=== PATIENT | female | born 1950 | race Caucasian/White ===

== ENCOUNTER 2021-01-04 11:10 | Emergency (ER) | payer MEDICARE, BC ==
[~2021-01-04] VITALS: Ht 162.6 cm; Wt 62.0 kg
[~2021-01-04 11:10] MED LIST: AMIO200T62 PO; APIX5TAB3 PO; CARV-50 PO; DIGO125T PO; FURO-149 PO; FURO-150 PO; GABA-532 PO; LISI2.5T2 PO; POTA20TA19 PO
[2021-01-04 12:17] LABS: BASOPHILS # (AUTO) 0.1 X10'3 (0-0.2); BASOPHILS % (AUTO) 0.6 % (0-1); EOSINOPHILS # (AUTO) 0.1 X10'3 (0-0.9); EOSINOPHILS % (AUTO) 0.7 % (0-6); HEMATOCRIT 41.7 % (35.0-45.0); HEMOGLOBIN 14.1 g/dl (12.0-16.0); LYMPHOCYTES % (AUTO) 11.3 % (21-51); MEAN CORPUSCULAR HEMOGLOBIN 31.8 PG (27.0-31.0); MEAN CORPUSCULAR HGB CONC 33.9 g/dL (33.0-36.5); MEAN CORPUSCULAR VOLUME 93.8 FL (78-98); MEAN PLATELET VOLUME 8.9 FL (7.4-10.4); MONOCYTES # (AUTO) 0.3 X10'3 (0-0.9); MONOCYTES % (AUTO) 3.4 % (2-12); NEUTROPHILS # (AUTO) 7.6 X10'3 (1.8-7.7); PLATELET COUNT 242 X10'3 (140-440); RED BLOOD COUNT 4.44 X10'6 (4.20-5.60); RED CELL DISTRIBUTION WIDTH 13.5 % (11.5-14.5); WHITE BLOOD COUNT 9.1 X10'3 (4.5-11.0)
[2021-01-04 12:24] LABS: CLARITY,URINE SLIGHTLY CLOUDY (Clear); COLOR,URINE STRAW (Yellow); GLUCOSE, URINE NEGATIVE (Neg); KETONES,URINE NEGATIVE (Neg); LEUKOCYTE ESTERASE ,URINE NEGATIVE (Neg); NITRITES, URINE NEGATIVE (Neg); OCCULT BLOOD,URINE TRACE-INTACT (Neg); PH,URINE 7.5 (4.8-8.0); PROTEIN,URINE NEGATIVE (Neg); UROBILINOGEN,URINE 0.2 E.U/dL (0.2-1.0)
[2021-01-04 12:29] LABS: UA COLLECTION TYPE CLN CATCH MIDSTREAM
[2021-01-04 12:30] LABS: BACTERIA,URINE 1+ /HPF (Neg); MUCUS STRANDS FEW /LPF (Neg); RBC,URINE 0-2 /HPF (0-2); SQUAMOUS EPITHELIAL CELL,UR MANY /LPF (FEW)
[2021-01-04 12:31] LABS: WBC,URINE 0-4 /HPF (0-4)
[2021-01-04 12:36] LABS: ALANINE AMINOTRANSFERASE 30 U/L (12-78); ALBUMIN 4.7 G/DL (3.4-5.0); ALBUMIN/GLOBULIN RATIO 1.4 (1.1-1.5); ALKALINE PHOSPHATASE 41 IU/L (46-116); ANION GAP 9 (8-16); ASPARTATE AMINO TRANSFERASE 23 U/L (10-37); BILIRUBIN,TOTAL 1.1 MG/DL (0.1-1.0); BLOOD UREA NITROGEN 19 MG/DL (7-18); BUN/CREATININE RATIO 13.6 (6.6-38.0); CALCIUM 9.3 MG/DL (8.5-10.1); CHLORIDE 104 MMOL/L (99-107); GLUCOSE 101 MG/DL (70-104); LIPASE 138 U/L (73-393); POTASSIUM 4.1 MMOL/L (3.5-5.1); SODIUM 141 MMOL/L (135-145); TOTAL CARBON DIOXIDE 28.5 MMOL/L (24-32); eGFR 37 ML/MIN
[2021-01-04 16:30] VITALS: BP 101/53
== END 2021-01-04 16:27 | disposition home or self-care (01) ==
LOC: ER 11:11
DX: N18.9 Chronic kidney disease, unspecified (principal); K57.90 Diverticulosis of intestine, part unspecified, without perforation or abscess without bleeding; R10.13 Epigastric pain; R42 Dizziness and giddiness; I48.91 Unspecified atrial fibrillation; Z95.5 Presence of coronary angioplasty implant and graft; Z87.440 Personal history of urinary (tract) infections; Z79.899 Other long term (current) drug therapy
CPT/HCPCS: 36415; 74176; 80053; 81001; 83690; 84484; 85025; 99284

== ENCOUNTER 2021-05-25 12:37 | Inpatient (IN) | payer MEDICARE, BC ==
[~2021-05-25] VITALS: Ht 162.6 cm; Wt 52.0 kg
[~2021-05-25 12:37] MED LIST changes: +LISI2.5T14 PO; -LISI2.5T2 PO
--- NOTE | 2021-05-25 12:45 | NUR ---
DR BRADLEY NOTIFIED OF LOW BP, AWAITING ORDERS
[2021-05-25 13:58] LABS: BASOPHILS # (AUTO) 0.1 X10'3 (0-0.2); BASOPHILS % (AUTO) 0.8 % (0-1); EOSINOPHILS % (AUTO) 0.4 % (0-6); HEMATOCRIT 33.4 % (35.0-45.0); HEMOGLOBIN 10.7 g/dl (12.0-16.0); LYMPHOCYTES # (AUTO) 1.1 X10'3 (1.1-4.8); LYMPHOCYTES % (AUTO) 8.8 % (21-51); MEAN CORPUSCULAR HGB CONC 31.9 g/dL (33.0-36.5); MEAN CORPUSCULAR VOLUME 81.5 FL (78-98); MEAN PLATELET VOLUME 8.3 FL (7.4-10.4); MONOCYTES # (AUTO) 0.8 X10'3 (0-0.9); MONOCYTES % (AUTO) 6.4 % (2-12); NEUTROPHILS % (AUTO) 83.6 % (42-75); PLATELET COUNT 297 X10'3 (140-440); RED BLOOD COUNT 4.09 X10'6 (4.20-5.60); RED CELL DISTRIBUTION WIDTH 28.7 % (11.5-14.5); WHITE BLOOD COUNT 11.9 X10'3 (4.5-11.0)
[2021-05-25 14:01] LABS: ALANINE AMINOTRANSFERASE 44 U/L (12-78); ALBUMIN 3.2 G/DL (3.4-5.0); ALBUMIN/GLOBULIN RATIO 0.8 (1.1-1.5); ALKALINE PHOSPHATASE 96 IU/L (46-116); ANION GAP 16 (8-16); ASPARTATE AMINO TRANSFERASE 31 U/L (10-37); BILIRUBIN,TOTAL 0.6 MG/DL (0.1-1.0); BLOOD UREA NITROGEN 60 MG/DL (7-18); BUN/CREATININE RATIO 26.9 (6.6-38.0); CALCIUM 8.6 MG/DL (8.5-10.1); CHLORIDE 98 MMOL/L (99-107); CREATININE 2.23 MG/DL (0.40-0.90); GLUCOSE 128 MG/DL (70-104); POTASSIUM 4.7 MMOL/L (3.5-5.1); SODIUM 135 MMOL/L (135-145); TOTAL CARBON DIOXIDE 20.7 MMOL/L (24-32); TOTAL PROTEIN 7.1 G/DL (6.4-8.2); eGFR 22 ML/MIN
[2021-05-25] MEDS ORDERED: DOBUTamine-DoBUTrex 500mg/D5W 250 ML IV SCH ×2 (14:10)
[2021-05-25] MEDS ORDERED: normal saline 1000ML IV soln IV ONE (14:20)
--- NOTE | 2021-05-25 14:22 | NUR ---
Spoke with Dr. Rosario at 1415 regarding order for dobutamine. Dr. Rosario stated that patients EF was ok and that patient need fluids and to discontinue dobutamine.
[2021-05-25 14:39] LABS: ANISOCYTOSIS 3+; ELLIPTOCYTES 1+; HYPOCHROMASIA 1+; PLATELET ESTIMATE NORMAL; SCHISTOCYTES FEW; SPHEROCYTES FEW
[2021-05-25] MEDS ORDERED: WARF1TAB83 PO (15:29)
[2021-05-25] MEDS ORDERED: BUME1TAB8 PO (15:29)
[2021-05-25] MEDS ORDERED: PRAV20TA4 PO (15:29)
[2021-05-25] MEDS ORDERED: DAPA10TA PO (15:29)
[2021-05-25] MEDS ORDERED: SPIR25TA5 PO (15:29)
[2021-05-25] MEDS ORDERED: LOSA50TA64 PO (15:29)
[2021-05-25] MEDS ORDERED: potassium Cl 40MEQ/1/2NS 520ml 520 ML IV PRN ×2 (15:40)
[2021-05-25] MEDS ORDERED: magnesium 4gm in 100ml NS 100 ML IV PRN (15:40)
[2021-05-25] MEDS ORDERED: potassium Cl 20 mEq SR tablet PO PRN ×2 (15:40)
[2021-05-25] MEDS ORDERED: ondansetron/PF 4mg/2ml inj IV PRN (15:40)
[2021-05-25] MEDS ORDERED: magnesium Cl slow-release 64mg tablet PO PRN (15:40)
[2021-05-25] MEDS ORDERED: magnesium 2GM in 50ml NS 50 ML IV PRN (15:40)
[2021-05-25] MEDS: normal saline 1000ml 1,000 ML IV SCH (16:07)
--- NOTE | 2021-05-25 16:30 | NUR ---
DR TREE LAYTON FOR DECREASED BLOOD PRESSURE, AWAITING ORDERS
[2021-05-25 17:13] LABS: CLARITY,URINE CLEAR (Clear); COLOR,URINE STRAW (Yellow); GLUCOSE, URINE 500 mg/dl (Neg); KETONES,URINE NEGATIVE (Neg); LEUKOCYTE ESTERASE ,URINE NEGATIVE (Neg); NITRITES, URINE NEGATIVE (Neg); OCCULT BLOOD,URINE NEGATIVE (Neg); PROTEIN,URINE NEGATIVE (Neg); UA COLLECTION TYPE STRAIGHT CATH; UROBILINOGEN,URINE 0.2 E.U/dL (0.2-1.0)
[2021-05-25] MEDS ORDERED: normal saline 500ml IV soln 500 ML IV ONE (17:15)
[2021-05-25 18:13] LABS: PARTIAL THROMBOPLASTIN TIME 36 SECONDS (22-32)
--- NOTE | 2021-05-25 19:42 | NUR ---
NOTIFIED CLAIMS AGENT RIGHT OF WAY OF CV OF DIGOXIN 3.4, PER CLAIMS AGENT RIGHT OF WAY WE WILL NEED TO PUT IN CENTRAL LINE FOR FLORINDA PRESSORS, CENTRAL LINE SET UP WAITING ON DOCTOR
[2021-05-25] MEDS: K and/or MAG REPLACEMENT MC SCH (20:07)
[2021-05-25] MEDS ORDERED: warfarin 1mg tablet PO SCH ×2 (21:00)
[2021-05-25] MEDS ORDERED: NORepinephrine 8mg/ 250ml NS 250 ML IV ONE (21:23)
[2021-05-25] MEDS: gabapentin 300mg capsule PO SCH (21:47)
[2021-05-26] VITALS (11 sets, daily range): BP systolic 101–116; BP diastolic 58–64
--- NOTE | 2021-05-26 01:10 | NUR ---
PT STARTED ON LEVOPHED AT BASIC RATE 0.1MCG, PT BLOOD PRESSURE RESPONDS TO TREATMENT, MAP BETWEEN 60-65
[2021-05-26 01:42] LABS: BASOPHILS # (AUTO) 0.1 X10'3 (0-0.2); BASOPHILS % (AUTO) 0.7 % (0-1); EOSINOPHILS # (AUTO) 0.2 X10'3 (0-0.9); EOSINOPHILS % (AUTO) 1.1 % (0-6); HEMATOCRIT 32.4 % (35.0-45.0); HEMOGLOBIN 10.3 g/dl (12.0-16.0); LYMPHOCYTES # (AUTO) 1.8 X10'3 (1.1-4.8); LYMPHOCYTES % (AUTO) 12.2 % (21-51); MEAN CORPUSCULAR HGB CONC 31.8 g/dL (33.0-36.5); MEAN CORPUSCULAR VOLUME 81.8 FL (78-98); MONOCYTES # (AUTO) 1.2 X10'3 (0-0.9); MONOCYTES % (AUTO) 8.5 % (2-12); NEUTROPHILS # (AUTO) 11.3 X10'3 (1.8-7.7); NEUTROPHILS % (AUTO) 77.5 % (42-75); PLATELET COUNT 377 X10'3 (140-440); RED BLOOD COUNT 3.96 X10'6 (4.20-5.60); RED CELL DISTRIBUTION WIDTH 27.9 % (11.5-14.5); WHITE BLOOD COUNT 14.6 X10'3 (4.5-11.0)
[2021-05-26] MEDS: normal saline 1000ml 1,000 ML IV SCH ×2 (01:43→11:59)
[2021-05-26 02:06] LABS: ALBUMIN 3.1 G/DL (3.4-5.0); ANION GAP 15 (8-16); BLOOD UREA NITROGEN 46 MG/DL (7-18); BUN/CREATININE RATIO 27.5 (6.6-38.0); CALCIUM 8.7 MG/DL (8.5-10.1); CHLORIDE 102 MMOL/L (99-107); CREATININE 1.67 MG/DL (0.40-0.90); GLUCOSE 127 MG/DL (70-104); MAGNESIUM 2.2 MG/DL (1.5-2.4); POTASSIUM 4.6 MMOL/L (3.5-5.1); SODIUM 137 MMOL/L (135-145); eGFR 30 ML/MIN
[2021-05-26] MEDS: acetaminophen 325mg tablet PO PRN (05:10)
[2021-05-26] MEDS: K and/or MAG REPLACEMENT MC SCH (06:32)
[2021-05-26] MEDS ORDERED: pravastatin 40mg tablet PO SCH (08:00)
[2021-05-26] MEDS: amiodarone 200mg tablet PO SCH (08:39)
[2021-05-26] MEDS: DAPAGLIFLOZIN 10MG TABLET PO SCH (08:41)
[2021-05-26] MEDS: NORepinephrine 8mg/ 250ml NS 250 ML IV PRN ×2 (10:34→10:36)
--- NOTE | 2021-05-26 11:12 | NUR ---
dr. john at bedside. updated on pt condition.
[2021-05-26] MEDS ORDERED: digoxin 125mcg (0.125mg) tablet PO SCH (12:00)
--- NOTE | 2021-05-26 13:34 | NUR ---
Received report from Lani [facility] ED. Pt Transferred to ICU 2037 with belongings in stable condition. Pt hooked up to monitor. VSS 116/61, 90, 18, 99% RA. Pt eating lunch brought up from ED. Mayorga cath in place. PPM visualized.
--- NOTE | 2021-05-26 18:21 | NUR ---
Problems reprioritized. Patient report given, questions answered & plan of care reviewed with Prashant FERNÁNDEZ.
[2021-05-26] MEDS ORDERED: warfarin 1mg tablet PO ONE (21:00)
[2021-05-26] MEDS: gabapentin 300mg capsule PO SCH (21:12)
[2021-05-27] VITALS (26 sets, daily range): BP systolic 98–113; BP diastolic 56–74
[2021-05-27] MEDS: normal saline 1000ml 1,000 ML IV SCH ×2 (04:36→21:16)
[2021-05-27] MEDS: K and/or MAG REPLACEMENT MC SCH ×2 (08:00→19:47)
[2021-05-27] MEDS: DAPAGLIFLOZIN 10MG TABLET PO SCH (08:09)
[2021-05-27] MEDS: amiodarone 200mg tablet PO SCH (08:09)
[2021-05-27 11:36] LABS: BASOPHILS # (AUTO) 0.1 X10'3 (0-0.2); BASOPHILS % (AUTO) 0.8 % (0-1); EOSINOPHILS # (AUTO) 0.2 X10'3 (0-0.9); EOSINOPHILS % (AUTO) 1.8 % (0-6); HEMATOCRIT 26.2 % (35.0-45.0); HEMOGLOBIN 8.6 g/dl (12.0-16.0); LYMPHOCYTES # (AUTO) 1.3 X10'3 (1.1-4.8); LYMPHOCYTES % (AUTO) 12.8 % (21-51); MEAN CORPUSCULAR HEMOGLOBIN 26.6 PG (27.0-31.0); MEAN CORPUSCULAR HGB CONC 32.8 g/dL (33.0-36.5); MEAN CORPUSCULAR VOLUME 81.1 FL (78-98); MEAN PLATELET VOLUME 7.6 FL (7.4-10.4); MONOCYTES # (AUTO) 0.7 X10'3 (0-0.9); MONOCYTES % (AUTO) 6.9 % (2-12); NEUTROPHILS # (AUTO) 7.8 X10'3 (1.8-7.7); NEUTROPHILS % (AUTO) 77.7 % (42-75); PLATELET COUNT 276 X10'3 (140-440); RED BLOOD COUNT 3.23 X10'6 (4.20-5.60); RED CELL DISTRIBUTION WIDTH 27.7 % (11.5-14.5)
[2021-05-27 11:55] LABS: ALBUMIN 2.5 G/DL (3.4-5.0); ANION GAP 6 (8-16); BLOOD UREA NITROGEN 26 MG/DL (7-18); CALCIUM 8.3 MG/DL (8.5-10.1); CHLORIDE 107 MMOL/L (99-107); CREATININE 1.04 MG/DL (0.40-0.90); GLUCOSE 115 MG/DL (70-104); MAGNESIUM 2.2 MG/DL (1.5-2.4); SODIUM 137 MMOL/L (135-145); TOTAL CARBON DIOXIDE 23.6 MMOL/L (24-32); eGFR 52 ML/MIN
[2021-05-27 12:12] LABS: ANISOCYTOSIS 3+; MICROCYTOSIS 1+; PLATELET ESTIMATE NORMAL
[2021-05-27 12:13] LABS: ELLIPTOCYTES FEW; POIKILOCYTOSIS FEW
[2021-05-27] MEDS: pravastatin 40mg tablet PO SCH (20:41)
[2021-05-27] MEDS: gabapentin 300mg capsule PO SCH (20:42)
[2021-05-27] MEDS ORDERED: warfarin 1mg tablet PO ONE (21:00)
[2021-05-28] VITALS (22 sets, daily range): BP systolic 86–114; BP diastolic 49–71
[2021-05-28] MEDS ORDERED: diazepam 5mg tablet PO ONE (00:55)
[2021-05-28 01:26] LABS: BASOPHILS # (AUTO) 0.1 X10'3 (0-0.2); BASOPHILS % (AUTO) 0.6 % (0-1); EOSINOPHILS # (AUTO) 0.1 X10'3 (0-0.9); EOSINOPHILS % (AUTO) 1.1 % (0-6); HEMATOCRIT 26.6 % (35.0-45.0); HEMOGLOBIN 8.7 g/dl (12.0-16.0); LYMPHOCYTES # (AUTO) 1.5 X10'3 (1.1-4.8); LYMPHOCYTES % (AUTO) 12.9 % (21-51); MEAN CORPUSCULAR HEMOGLOBIN 26.5 PG (27.0-31.0); MEAN CORPUSCULAR HGB CONC 32.5 g/dL (33.0-36.5); MEAN CORPUSCULAR VOLUME 81.5 FL (78-98); MEAN PLATELET VOLUME 8.1 FL (7.4-10.4); MONOCYTES # (AUTO) 0.8 X10'3 (0-0.9); MONOCYTES % (AUTO) 6.5 % (2-12); NEUTROPHILS # (AUTO) 9.4 X10'3 (1.8-7.7); NEUTROPHILS % (AUTO) 78.9 % (42-75); PLATELET COUNT 315 X10'3 (140-440); RED BLOOD COUNT 3.27 X10'6 (4.20-5.60); RED CELL DISTRIBUTION WIDTH 28.5 % (11.5-14.5); WHITE BLOOD COUNT 11.9 X10'3 (4.5-11.0)
[2021-05-28 01:32] LABS: CLARITY,URINE CLOUDY (Clear); COLOR,URINE YELLOW (Yellow); UA COLLECTION TYPE FOLEY CATH
[2021-05-28 01:33] LABS: GLUCOSE, URINE >=1000 mg/dl (Neg); KETONES,URINE NEGATIVE (Neg); LEUKOCYTE ESTERASE ,URINE SMALL (Neg); NITRITES, URINE POSITIVE (Neg); OCCULT BLOOD,URINE LARGE (Neg); PROTEIN,URINE 100 mg/dl (Neg); UROBILINOGEN,URINE 0.2 E.U/dL (0.2-1.0)
[2021-05-28 01:39] LABS: ALBUMIN 2.6 G/DL (3.4-5.0); ANION GAP 11 (8-16); BLOOD UREA NITROGEN 25 MG/DL (7-18); BUN/CREATININE RATIO 23.6 (6.6-38.0); CALCIUM 8.3 MG/DL (8.5-10.1); CHLORIDE 107 MMOL/L (99-107); CREATININE 1.06 MG/DL (0.40-0.90); GLUCOSE 104 MG/DL (70-104); POTASSIUM 4.3 MMOL/L (3.5-5.1); SODIUM 140 MMOL/L (135-145); TOTAL CARBON DIOXIDE 22.5 MMOL/L (24-32); eGFR 51 ML/MIN
[2021-05-28 01:42] LABS: WBC CLUMPS,URINE MANY /HPF (NEGATIVE)
[2021-05-28 01:43] LABS: BACTERIA,URINE 4+ /HPF (Neg); RBC,URINE 20-50 /HPF (0-2); WBC,URINE TNTC /HPF (0-4)
[2021-05-28 01:44] LABS: RENAL CELLS, URINE FEW /HPF; SQUAMOUS EPITHELIAL CELL,UR FEW /LPF (FEW)
[2021-05-28] MEDS: DAPAGLIFLOZIN 10MG TABLET PO SCH (07:57)
[2021-05-28] MEDS: piperacillin/tazo 3.375gm/50ml 50 ML IV SCH ×2 (07:57→15:54)
[2021-05-28] MEDS: amiodarone 200mg tablet PO SCH (07:57)
[2021-05-28] MEDS: K and/or MAG REPLACEMENT MC SCH ×2 (08:00→19:30)
--- NOTE | 2021-05-28 12:05 | NUR ---
patient had one incontinent episode
[2021-05-28] MEDS: acetaminophen 325mg tablet PO PRN (13:17)
[2021-05-28] MEDS: normal saline 1000ml 1,000 ML IV SCH (13:56)
[2021-05-28] MEDS: midodrine 5mg tablet PO SCH (15:54)
[2021-05-28] MEDS: phenazopyridine 100mg tablet PO SCH (18:11)
--- NOTE | 2021-05-28 18:19 | NUR ---
Problems reprioritized. Patient report given, questions answered & plan of care reviewed with Jerilyn FERNÁNDEZ.
[2021-05-28] MEDS: lactobacillus rhamnosus 10,000 MMU CELLS/CAPSULE PO SCH (20:30)
[2021-05-28] MEDS: pravastatin 40mg tablet PO SCH (20:32)
[2021-05-28] MEDS: gabapentin 300mg capsule PO SCH (20:32)
[2021-05-28] MEDS ORDERED: warfarin 1mg tablet PO ONE (21:00)
[2021-05-29] VITALS (42 sets, daily range): BP systolic 83–120; BP diastolic 43–69
[2021-05-29] MEDS: piperacillin/tazo 3.375gm/50ml 50 ML IV SCH ×2 (00:12→08:54)
[2021-05-29 04:08] LABS: BASOPHILS # (AUTO) 0.1 X10'3 (0-0.2); BASOPHILS % (AUTO) 0.5 % (0-1); EOSINOPHILS # (AUTO) 0.1 X10'3 (0-0.9); HEMATOCRIT 26.1 % (35.0-45.0); HEMOGLOBIN 8.2 g/dl (12.0-16.0); LYMPHOCYTES # (AUTO) 1.5 X10'3 (1.1-4.8); LYMPHOCYTES % (AUTO) 12.4 % (21-51); MEAN CORPUSCULAR HEMOGLOBIN 26.4 PG (27.0-31.0); MEAN CORPUSCULAR HGB CONC 31.5 g/dL (33.0-36.5); MEAN CORPUSCULAR VOLUME 83.7 FL (78-98); MEAN PLATELET VOLUME 8.3 FL (7.4-10.4); MONOCYTES % (AUTO) 8.2 % (2-12); NEUTROPHILS # (AUTO) 9.5 X10'3 (1.8-7.7); NEUTROPHILS % (AUTO) 77.9 % (42-75); PLATELET COUNT 287 X10'3 (140-440); RED BLOOD COUNT 3.11 X10'6 (4.20-5.60); RED CELL DISTRIBUTION WIDTH 28.6 % (11.5-14.5); WHITE BLOOD COUNT 12.2 X10'3 (4.5-11.0)
[2021-05-29 04:36] LABS: ALANINE AMINOTRANSFERASE 32 U/L (12-78); ALBUMIN 2.5 G/DL (3.4-5.0); ALBUMIN/GLOBULIN RATIO 0.8 (1.1-1.5); ALKALINE PHOSPHATASE 95 IU/L (46-116); ANION GAP 12 (8-16); ASPARTATE AMINO TRANSFERASE 21 U/L (10-37); BILIRUBIN,TOTAL 0.7 MG/DL (0.1-1.0); BLOOD UREA NITROGEN 22 MG/DL (7-18); BUN/CREATININE RATIO 18.6 (6.6-38.0); CALCIUM 8.5 MG/DL (8.5-10.1); CHLORIDE 104 MMOL/L (99-107); CREATININE 1.18 MG/DL (0.40-0.90); GLUCOSE 99 MG/DL (70-104); MAGNESIUM 2.1 MG/DL (1.5-2.4); POTASSIUM 3.8 MMOL/L (3.5-5.1); SODIUM 135 MMOL/L (135-145); TOTAL CARBON DIOXIDE 19.5 MMOL/L (24-32); TOTAL PROTEIN 5.8 G/DL (6.4-8.2); eGFR 45 ML/MIN
[2021-05-29 04:47] LABS: ANISOCYTOSIS 3+; ELLIPTOCYTES 1+; HYPOCHROMASIA 1+; PLATELET ESTIMATE NORMAL; POIKILOCYTOSIS 1+; POLYCHROMASIA FEW
[2021-05-29] MEDS: normal saline 1000ml 1,000 ML IV SCH ×2 (07:26→22:58)
[2021-05-29] MEDS: K and/or MAG REPLACEMENT MC SCH ×2 (08:00→20:00)
[2021-05-29] MEDS: lactobacillus rhamnosus 10,000 MMU CELLS/CAPSULE PO SCH ×2 (08:54→20:00)
[2021-05-29] MEDS: phenazopyridine 100mg tablet PO SCH ×2 (08:55→13:00)
[2021-05-29] MEDS: midodrine 5mg tablet PO SCH (08:55)
[2021-05-29] MEDS: amiodarone 200mg tablet PO SCH (08:55)
[2021-05-29] MEDS: DAPAGLIFLOZIN 10MG TABLET PO SCH (08:56)
[2021-05-29] MEDS: NORepinephrine 8mg/ 250ml NS 250 ML IV PRN (08:57)
[2021-05-29] MEDS: ondansetron 4mg rapidly disintigrating tab PO PRN ×2 (09:52→14:20)
[2021-05-29] MEDS: midodrine tablet 2.5 MG TABLET PO SCH ×2 (11:39→16:54)
[2021-05-29] MEDS: ciprofloxacin 250mg tablet PO SCH ×2 (12:31→21:03)
[2021-05-29] MEDS: acetaminophen 325mg tablet PO PRN (14:20)
--- NOTE | 2021-05-29 15:13 | NUR ---
Initial: Pt admitted s/p episodes of syncope, found to be hypotensive per EMR. Pt able to eat moderately well, mostly 50% of meals on Heart Healthy diet meeting needs. [facility] 05/28. No nutrition intervention implemented at this time, will continue to monitor. Recs: 1. Continue Heart Healthy diet as tolerated 2. Bowel care per rx 3. Weekly wts Addendum: 05/29/21 at [address] Amended: Links added.
[2021-05-29] MEDS: pravastatin 40mg tablet PO SCH (21:03)
[2021-05-29] MEDS: gabapentin 300mg capsule PO SCH (21:03)
[2021-05-30] VITALS (26 sets, daily range): BP systolic 87–110; BP diastolic 53–67
[2021-05-30 03:55] LABS: BASOPHILS # (AUTO) 0.1 X10'3 (0-0.2); BASOPHILS % (AUTO) 0.6 % (0-1); EOSINOPHILS % (AUTO) 0.4 % (0-6); HEMATOCRIT 25.1 % (35.0-45.0); HEMOGLOBIN 7.9 g/dl (12.0-16.0); MEAN CORPUSCULAR HEMOGLOBIN 26.5 PG (27.0-31.0); MEAN CORPUSCULAR HGB CONC 31.5 g/dL (33.0-36.5); MEAN CORPUSCULAR VOLUME 84.2 FL (78-98); MEAN PLATELET VOLUME 8.2 FL (7.4-10.4); MONOCYTES # (AUTO) 1.2 X10'3 (0-0.9); MONOCYTES % (AUTO) 9.5 % (2-12); NEUTROPHILS # (AUTO) 10.6 X10'3 (1.8-7.7); NEUTROPHILS % (AUTO) 81.5 % (42-75); PLATELET COUNT 335 X10'3 (140-440); RED BLOOD COUNT 2.98 X10'6 (4.20-5.60); RED CELL DISTRIBUTION WIDTH 28.7 % (11.5-14.5)
[2021-05-30 04:05] LABS: ALBUMIN 2.5 G/DL (3.4-5.0); ANION GAP 11 (8-16); BLOOD UREA NITROGEN 20 MG/DL (7-18); BUN/CREATININE RATIO 16.9 (6.6-38.0); CALCIUM 8.2 MG/DL (8.5-10.1); CHLORIDE 106 MMOL/L (99-107); CREATININE 1.18 MG/DL (0.40-0.90); GLUCOSE 100 MG/DL (70-104); MAGNESIUM 2.1 MG/DL (1.5-2.4); SODIUM 139 MMOL/L (135-145); TOTAL CARBON DIOXIDE 21.9 MMOL/L (24-32); eGFR 45 ML/MIN
[2021-05-30 04:44] LABS: ANISOCYTOSIS 3+; PLATELET ESTIMATE NORMAL
[2021-05-30 04:45] LABS: HYPOCHROMASIA 1+; POIKILOCYTOSIS FEW; POLYCHROMASIA FEW
[2021-05-30 04:48] LABS: ELLIPTOCYTES FEW
[2021-05-30] MEDS: lactobacillus rhamnosus 10,000 MMU CELLS/CAPSULE PO SCH ×2 (07:27→20:00)
[2021-05-30] MEDS: DAPAGLIFLOZIN 10MG TABLET PO SCH (07:27)
[2021-05-30] MEDS: midodrine tablet 2.5 MG TABLET PO SCH ×3 (07:27→16:00)
[2021-05-30] MEDS: amiodarone 200mg tablet PO SCH (07:27)
[2021-05-30] MEDS: K and/or MAG REPLACEMENT MC SCH ×2 (07:31→20:00)
[2021-05-30] MEDS: ciprofloxacin 250mg tablet PO SCH ×2 (08:44→22:00)
[2021-05-30] MEDS: ondansetron 4mg rapidly disintigrating tab PO PRN ×2 (12:19→18:26)
[2021-05-30] MEDS: normal saline 1000ml 1,000 ML IV SCH (15:52)
[2021-05-30] MEDS ORDERED: ondansetron/PF 4mg/2ml inj ONE (20:56)
[2021-05-30] MEDS: pravastatin 40mg tablet PO SCH (21:00)
[2021-05-30] MEDS: gabapentin 300mg capsule PO SCH (21:00)
[2021-05-31] VITALS (25 sets, daily range): BP systolic 90–129; BP diastolic 42–75
[2021-05-31] MEDS: ondansetron/PF 4mg/2ml inj IV PRN ×4 (05:06→23:14)
[2021-05-31] MEDS: ciprofloxacin 250mg tablet PO SCH ×2 (07:51→23:15)
[2021-05-31] MEDS: DAPAGLIFLOZIN 10MG TABLET PO SCH (07:51)
[2021-05-31] MEDS: ondansetron 4mg rapidly disintigrating tab PO PRN ×2 (07:51→13:41)
[2021-05-31] MEDS: amiodarone 200mg tablet PO SCH (07:51)
[2021-05-31] MEDS: midodrine tablet 2.5 MG TABLET PO SCH ×2 (07:51→13:41)
[2021-05-31] MEDS: lactobacillus rhamnosus 10,000 MMU CELLS/CAPSULE PO SCH ×2 (07:52→23:14)
[2021-05-31] MEDS: K and/or MAG REPLACEMENT MC SCH ×2 (08:00→20:00)
[2021-05-31] MEDS: normal saline 1000ml 1,000 ML IV SCH (08:36)
--- NOTE | 2021-05-31 19:36 | NUR ---
Problems reprioritized. Patient report given, questions answered & plan of care reviewed with PRADEEP VIGIL.
[2021-05-31] MEDS: gabapentin 300mg capsule PO SCH (23:15)
[2021-06-01] VITALS (11 sets, daily range): BP systolic 77–113; BP diastolic 42–64
[2021-06-01] MEDS: pravastatin 40mg tablet PO SCH ×2 (02:05→21:08)
--- NOTE | 2021-06-01 04:24 | NUR ---
ENTERED ORTHOSTATIC VITALS FROM 0400 HOUR IN WRONG CELL (1999) IN ERROR
--- NOTE | 2021-06-01 06:48 | NUR ---
Patient in room [facility]. I have received report from MUSA FERNÁNDEZ and had the opportunity to ask questions and assume patient care.
[2021-06-01] MEDS: amiodarone 200mg tablet PO SCH (07:57)
[2021-06-01] MEDS: DAPAGLIFLOZIN 10MG TABLET PO SCH (07:57)
[2021-06-01] MEDS: lactobacillus rhamnosus 10,000 MMU CELLS/CAPSULE PO SCH ×2 (07:58→21:08)
[2021-06-01] MEDS: midodrine 5mg tablet PO SCH ×3 (07:58→15:07)
[2021-06-01] MEDS: K and/or MAG REPLACEMENT MC SCH ×2 (08:00→20:00)
[2021-06-01] MEDS: ondansetron/PF 4mg/2ml inj IV PRN ×2 (08:12→15:48)
--- NOTE | 2021-06-01 09:40 | NUR ---
PAGER ID: [phone] MESSAGE: Paige FERNÁNDEZ [phone] re: Nicole BullardB. Who is the assigned hospitalist, requesting CBC. Thank you!
[2021-06-01] MEDS: ciprofloxacin 250mg tablet PO SCH ×2 (10:13→21:08)
[2021-06-01 11:10] LABS: ALBUMIN 2.5 G/DL (3.4-5.0); ALBUMIN/GLOBULIN RATIO 0.8 (1.1-1.5); ALKALINE PHOSPHATASE 110 IU/L (46-116); ANION GAP 14 (8-16); BILIRUBIN,TOTAL 1.5 MG/DL (0.1-1.0); BLOOD UREA NITROGEN 30 MG/DL (7-18); BUN/CREATININE RATIO 18.1 (6.6-38.0); CHLORIDE 97 MMOL/L (99-107); CREATININE 1.66 MG/DL (0.40-0.90); GLUCOSE 114 MG/DL (70-104); MAGNESIUM 1.9 MG/DL (1.5-2.4); POTASSIUM 4.4 MMOL/L (3.5-5.1); SODIUM 128 MMOL/L (135-145); TOTAL CARBON DIOXIDE 17.5 MMOL/L (24-32); TOTAL PROTEIN 5.7 G/DL (6.4-8.2); eGFR 31 ML/MIN
[2021-06-01 11:12] LABS: ALANINE AMINOTRANSFERASE 1323 U/L (12-78); ASPARTATE AMINO TRANSFERASE 1339 U/L (10-37)
[2021-06-01 12:17] LABS: BASOPHILS # (AUTO) 0.1 X10'3 (0-0.2); BASOPHILS % (AUTO) 0.5 % (0-1); EOSINOPHILS % (AUTO) 0 % (0-6); HEMATOCRIT 23.7 % (35.0-45.0); HEMOGLOBIN 7.2 g/dl (12.0-16.0); LYMPHOCYTES # (AUTO) 1.5 X10'3 (1.1-4.8); LYMPHOCYTES % (AUTO) 6.2 % (21-51); MEAN CORPUSCULAR HEMOGLOBIN 26.1 PG (27.0-31.0); MEAN CORPUSCULAR HGB CONC 30.6 g/dL (33.0-36.5); MEAN CORPUSCULAR VOLUME 85.2 FL (78-98); MEAN PLATELET VOLUME 7.6 FL (7.4-10.4); MONOCYTES # (AUTO) 0.7 X10'3 (0-0.9); MONOCYTES % (AUTO) 2.7 % (2-12); NEUTROPHILS # (AUTO) 22.2 X10'3 (1.8-7.7); NEUTROPHILS % (AUTO) 90.6 % (42-75); PLATELET COUNT 269 X10'3 (140-440); RED BLOOD COUNT 2.78 X10'6 (4.20-5.60); RED CELL DISTRIBUTION WIDTH 29.4 % (11.5-14.5); WHITE BLOOD COUNT 24.5 X10'3 (4.5-11.0)
[2021-06-01 12:48] LABS: ANISOCYTOSIS 3+; NUCLEATED RED BLOOD CELLS 2 /100WBC (0-0); PLATELET ESTIMATE NORMAL; TOTAL CELLS COUNTED 100
[2021-06-01 12:50] LABS: ELLIPTOCYTES FEW; HYPOCHROMASIA 1+
[2021-06-01 12:51] LABS: POLYCHROMASIA 1+
--- NOTE | 2021-06-01 13:46 | NUR ---
intensivists notified of patients current condition. stated he will be by to see the patient shortly. Will continue to monitor patient
[2021-06-01] MEDS ORDERED: furosemide 20 MG/2 ML vial IV ONE (14:00)
--- NOTE | 2021-06-01 18:53 | NUR ---
Problems reprioritized. Patient report given, questions answered & plan of care reviewed with London FERNÁNDEZ.
[2021-06-01] MEDS: gabapentin 300mg capsule PO SCH (21:08)
[2021-06-01] MEDS: cefepime 1GM in D5W 50mL 50 ML IV SCH (21:08)
[2021-06-02] VITALS (9 sets, daily range): BP systolic 79–121; BP diastolic 31–73
--- NOTE | 2021-06-02 06:15 | NUR ---
RIJ central line removed per orders. Pt tolerated well and followed inspiration/ bear down directions well . pressure drsng applied
--- NOTE | 2021-06-02 06:42 | NUR ---
Patient in room [facility]. I have received report from anshu mcdaniel and had the opportunity to ask questions and assume patient care.
[2021-06-02 07:34] LABS: ALBUMIN 2.5 G/DL (3.4-5.0); ALBUMIN/GLOBULIN RATIO 0.8 (1.1-1.5); ALKALINE PHOSPHATASE 132 IU/L (46-116); ANION GAP 13 (8-16); ASPARTATE AMINO TRANSFERASE 869 U/L (10-37); BILIRUBIN,TOTAL 1.9 MG/DL (0.1-1.0); BLOOD UREA NITROGEN 31 MG/DL (7-18); BUN/CREATININE RATIO 17.8 (6.6-38.0); CHLORIDE 97 MMOL/L (99-107); CREATININE 1.74 MG/DL (0.40-0.90); GLUCOSE 94 MG/DL (70-104); POTASSIUM 4.3 MMOL/L (3.5-5.1); SODIUM 128 MMOL/L (135-145); TOTAL CARBON DIOXIDE 17.9 MMOL/L (24-32); TOTAL PROTEIN 5.7 G/DL (6.4-8.2); eGFR 29 ML/MIN
[2021-06-02 07:38] LABS: ALANINE AMINOTRANSFERASE 1268 U/L (12-78)
[2021-06-02 07:50] LABS: EOSINOPHILS % (AUTO) 0.1 % (0-6); HEMOGLOBIN 7.1 g/dl (12.0-16.0); MEAN CORPUSCULAR HGB CONC 31.1 g/dL (33.0-36.5)
[2021-06-02 07:52] LABS: BASOPHILS % (AUTO) 0.1 % (0-1); HEMATOCRIT 22.9 % (35.0-45.0); LYMPHOCYTES # (AUTO) 1.8 X10'3 (1.1-4.8); MEAN CORPUSCULAR HEMOGLOBIN 26.8 PG (27.0-31.0); MEAN CORPUSCULAR VOLUME 86.2 FL (78-98); MEAN PLATELET VOLUME 8.2 FL (7.4-10.4); MONOCYTES # (AUTO) 0.9 X10'3 (0-0.9); MONOCYTES % (AUTO) 4.1 % (2-12); NEUTROPHILS # (AUTO) 19.2 X10'3 (1.8-7.7); NEUTROPHILS % (AUTO) 87.7 % (42-75); PLATELET COUNT 224 X10'3 (140-440); RED BLOOD COUNT 2.66 X10'6 (4.20-5.60); RED CELL DISTRIBUTION WIDTH 29.9 % (11.5-14.5); WHITE BLOOD COUNT 21.9 X10'3 (4.5-11.0)
[2021-06-02] MEDS: K and/or MAG REPLACEMENT MC SCH ×2 (08:00→20:00)
[2021-06-02] MEDS: cefepime 1GM in D5W 50mL 50 ML IV SCH ×3 (08:13→23:18)
[2021-06-02] MEDS: DAPAGLIFLOZIN 10MG TABLET PO SCH (08:13)
[2021-06-02] MEDS: amiodarone 200mg tablet PO SCH (08:14)
[2021-06-02] MEDS: midodrine 5mg tablet PO SCH ×3 (08:14→17:30)
[2021-06-02] MEDS: ondansetron/PF 4mg/2ml inj IV PRN (08:14)
[2021-06-02] MEDS: lactobacillus rhamnosus 10,000 MMU CELLS/CAPSULE PO SCH ×2 (08:14→20:47)
[2021-06-02 08:23] LABS: PLATELET ESTIMATE NORMAL; TOTAL CELLS COUNTED 100
[2021-06-02 08:24] LABS: ANISOCYTOSIS 3+; ELLIPTOCYTES FEW; POIKILOCYTOSIS FEW; POLYCHROMASIA 2+
--- NOTE | 2021-06-02 09:47 | NUR ---
PAGER ID: [phone] MESSAGE: irma mcdaniel [phone] re: sushil Bullard [id number]. Zofran ineffective, pt still nauseous. Please advise, thank you
[2021-06-02] MEDS: ciprofloxacin 250mg tablet PO SCH ×2 (10:09→21:04)
[2021-06-02] MEDS: metoclopramide 5 mg/ml inj IV PRN (12:28)
[2021-06-02] MEDS: gabapentin 300mg capsule PO SCH (20:47)
[2021-06-02] MEDS: pravastatin 40mg tablet PO SCH (20:48)
[2021-06-02] MEDS: acetaminophen 325mg tablet PO PRN (23:36)
[2021-06-03] VITALS (12 sets, daily range): BP systolic 89–125; BP diastolic 48–59
--- NOTE | 2021-06-03 05:54 | NUR ---
unable to perform orthostatic BPs due to pt's health status. Pt kept BR this shift
--- NOTE | 2021-06-03 06:28 | NUR ---
Patient in room [facility] 347. I have received report from MUSA FRENÁNDEZ and had the opportunity to ask questions and assume patient care.
[2021-06-03] MEDS: lactobacillus rhamnosus 10,000 MMU CELLS/CAPSULE PO SCH ×2 (07:20→20:01)
[2021-06-03] MEDS: amiodarone 200mg tablet PO SCH (07:20)
[2021-06-03] MEDS: midodrine 5mg tablet PO SCH ×3 (07:20→15:55)
[2021-06-03] MEDS: metoclopramide 5 mg/ml inj IV PRN (07:21)
[2021-06-03] MEDS: cefepime 1GM in D5W 50mL 50 ML IV SCH ×2 (07:21→15:59)
[2021-06-03] MEDS: K and/or MAG REPLACEMENT MC SCH ×2 (08:00→20:00)
[2021-06-03] MEDS: DAPAGLIFLOZIN 10MG TABLET PO SCH (09:15)
[2021-06-03] MEDS: ciprofloxacin 250mg tablet PO SCH ×2 (09:15→21:04)
[2021-06-03 09:59] LABS: BASOPHILS # (AUTO) 0.1 X10'3 (0-0.2); EOSINOPHILS # (AUTO) 0.2 X10'3 (0-0.9); LYMPHOCYTES # (AUTO) 1.3 X10'3 (1.1-4.8); MONOCYTES # (AUTO) 0.7 X10'3 (0-0.9)
[2021-06-03 10:01] LABS: BASOPHILS % (AUTO) 0.3 % (0-1); EOSINOPHILS % (AUTO) 0.9 % (0-6); HEMATOCRIT 30.3 % (35.0-45.0); LYMPHOCYTES % (AUTO) 6.4 % (21-51); MEAN CORPUSCULAR HGB CONC 32.8 g/dL (33.0-36.5); MEAN CORPUSCULAR VOLUME 85.2 FL (78-98); MEAN PLATELET VOLUME 8.1 FL (7.4-10.4); MONOCYTES % (AUTO) 3.4 % (2-12); NEUTROPHILS # (AUTO) 18.4 X10'3 (1.8-7.7); PLATELET COUNT 145 X10'3 (140-440); RED BLOOD COUNT 3.56 X10'6 (4.20-5.60); RED CELL DISTRIBUTION WIDTH 24.2 % (11.5-14.5); WHITE BLOOD COUNT 20.7 X10'3 (4.5-11.0)
[2021-06-03 10:19] LABS: NUCLEATED RED BLOOD CELLS 5 /100WBC (0-0); PLATELET ESTIMATE DECREASED; TOTAL CELLS COUNTED 100
[2021-06-03 10:20] LABS: ANISOCYTOSIS 3+; ELLIPTOCYTES FEW; POLYCHROMASIA 2+
[2021-06-03 10:28] LABS: ALBUMIN 2.3 G/DL (3.4-5.0); ALBUMIN/GLOBULIN RATIO 0.7 (1.1-1.5); ALKALINE PHOSPHATASE 152 IU/L (46-116); ANION GAP 11 (8-16); ASPARTATE AMINO TRANSFERASE 582 U/L (10-37); BILIRUBIN,TOTAL 3.3 MG/DL (0.1-1.0); BLOOD UREA NITROGEN 34 MG/DL (7-18); CALCIUM 7.9 MG/DL (8.5-10.1); CHLORIDE 95 MMOL/L (99-107); CREATININE 1.48 MG/DL (0.40-0.90); GLUCOSE 126 MG/DL (70-104); SODIUM 123 MMOL/L (135-145); TOTAL CARBON DIOXIDE 17.3 MMOL/L (24-32); TOTAL PROTEIN 5.7 G/DL (6.4-8.2); eGFR 35 ML/MIN
[2021-06-03 10:30] LABS: ALANINE AMINOTRANSFERASE 1238 U/L (12-78); POTASSIUM 4.1 MMOL/L (3.5-5.1)
--- NOTE | 2021-06-03 17:20 | NUR ---
Pt states she feels a little better today despite continued low BP. Orthostatic vitals today were lying BP89/57 sit BP98/57 stand BP97/58. Pt had a small loose stool however it was completely mixed with urine. Pt still needs U/A and occult stool. Pt refused multiple repositionings today but did agree to turn 3 times this shift after primary nurse educated patient and significant other. Hopefully pt will be seen by physical therapy tomorrow. Will continue to monitor patient.
--- NOTE | 2021-06-03 18:18 | NUR ---
Problems reprioritized. Patient report given, questions answered & plan of care reviewed with London mcdaniel.
--- NOTE | 2021-06-03 19:46 | NUR ---
WAS SUMMONED TO PT ROOM BY ACID REGENERATOR. PT BECAME WINDED AFTER PERFORMING ORTHOSTATIC VITALS. ACID REGENERATOR REPORTS DESATURATION TO 91% ON RA. FOUND PT BACK IN BED RR 22 AND SLIGHTLY LABORED. 02 SAT 97%ON 3L. PT NOW RESTING COMFORTABLY . WILL MONITOR
[2021-06-03] MEDS: pravastatin 40mg tablet PO SCH (20:02)
[2021-06-03] MEDS: gabapentin 300mg capsule PO SCH (20:02)
--- NOTE | 2021-06-03 20:09 | NUR ---
PT RESTING IN BED COMFORTABLY . RESP EVEN AND UNLABORED
[2021-06-03] MEDS ORDERED: warfarin 1mg tablet PO ONE (21:00)
[2021-06-04] MEDS: cefepime 1GM in D5W 50mL 50 ML IV SCH ×3 (00:48→16:19)
[2021-06-04 01:20] LABS: SODIUM,URINE RANDOM < 15 MEQ/L
[2021-06-04 01:23] LABS: OSMOLALITY UA 379 MOSM/K (50-1400)
[2021-06-04 06:57] LABS: ALBUMIN 2.3 G/DL (3.4-5.0); ALBUMIN/GLOBULIN RATIO 0.6 (1.1-1.5); ALKALINE PHOSPHATASE 163 IU/L (46-116); ANION GAP 16 (8-16); ASPARTATE AMINO TRANSFERASE 407 U/L (10-37); BLOOD UREA NITROGEN 32 MG/DL (7-18); BUN/CREATININE RATIO 23.2 (6.6-38.0); CALCIUM 7.9 MG/DL (8.5-10.1); CHLORIDE 94 MMOL/L (99-107); CREATININE 1.38 MG/DL (0.40-0.90); GLUCOSE 99 MG/DL (70-104); POTASSIUM 4.5 MMOL/L (3.5-5.1); SODIUM 127 MMOL/L (135-145); TOTAL CARBON DIOXIDE 16.9 MMOL/L (24-32); TOTAL PROTEIN 5.9 G/DL (6.4-8.2); eGFR 38 ML/MIN
[2021-06-04 07:01] LABS: ALANINE AMINOTRANSFERASE 1042 U/L (12-78)
[2021-06-04 08:00] VITALS: BP_SYST 87; BP_SYST 96; BP_SYST 97; BP_DIAS 53; BP_DIAS 54; BP_DIAS 55
[2021-06-04] MEDS: K and/or MAG REPLACEMENT MC SCH ×2 (08:00→20:00)
[2021-06-04] MEDS: midodrine 5mg tablet PO SCH ×3 (10:10→16:19)
[2021-06-04] MEDS: DAPAGLIFLOZIN 10MG TABLET PO SCH (10:10)
[2021-06-04] MEDS: amiodarone 200mg tablet PO SCH (10:11)
[2021-06-04] MEDS: ciprofloxacin 250mg tablet PO SCH ×2 (10:11→22:20)
[2021-06-04] MEDS: lactobacillus rhamnosus 10,000 MMU CELLS/CAPSULE PO SCH ×2 (10:11→20:37)
[2021-06-04 10:14] LABS: HEMATOCRIT 31.5 % (35.0-45.0); HEMOGLOBIN 10.2 g/dl (12.0-16.0); MEAN CORPUSCULAR HEMOGLOBIN 27.8 PG (27.0-31.0); MEAN CORPUSCULAR HGB CONC 32.3 g/dL (33.0-36.5); MEAN CORPUSCULAR VOLUME 86.1 FL (78-98); MEAN PLATELET VOLUME 8.8 FL (7.4-10.4); PLATELET COUNT 125 X10'3 (140-440); RED BLOOD COUNT 3.66 X10'6 (4.20-5.60); RED CELL DISTRIBUTION WIDTH 25.6 % (11.5-14.5); WHITE BLOOD COUNT 18.1 X10'3 (4.5-11.0)
[2021-06-04 10:51] LABS: ANISOCYTOSIS 3+; BURR CELLS 2+; NUCLEATED RED BLOOD CELLS 6 /100WBC (0-0); PLATELET ESTIMATE DECREASED; POLYCHROMASIA 2+; TOTAL CELLS COUNTED 100
[2021-06-04 10:52] LABS: ELLIPTOCYTES 1+; SCHISTOCYTES FEW
[2021-06-04 11:00] VITALS: BP 89/58
--- NOTE | 2021-06-04 11:29 | NUR ---
outcomes met Addendum: 06/04/21 at 1129 by Eduard Pearson RN Amended: Links added.
--- NOTE | 2021-06-04 11:54 | NUR ---
Reassessment: Pt w/ moderately low PO intake, avg 34% x 9 meals on Heart Healthy diet not meeting needs. Pt also now w/ sepsis. Pt may benefit from Ensure High Protein to help meet increased protein needs. Pt may also benefit from diet liberalization to Regular given poor PO and serum Na 127. LBM 06/02 w/ PRN Reglan available. Will continue to monitor and make recommendations as appropriate. Recs: 1. Liberalize to Regular diet if MD agreeable 2. Ensure High Protein TID; pending MD verification 3. Bowel care per rx 4. Weekly wts Addendum: 06/04/21 at [address] La Fuente RD Amended: Links added.
[2021-06-04] MEDS ORDERED: lactose-reduced food (Ensure High Protein) 237ml bottle PO SCH (13:00)
--- NOTE | 2021-06-04 18:30 | NUR ---
Problems reprioritized. Patient report given, questions answered & plan of care reviewed with Ta mcdaniel.
--- NOTE | 2021-06-04 18:47 | NUR ---
Patient in room [facility] 347. I have received report from Eduard FERNÁNDEZ and had the opportunity to ask questions and assume patient care.
[2021-06-04 20:00] VITALS: BP 98/60
[2021-06-04 20:25] VITALS: BP 98/60
[2021-06-04] MEDS: gabapentin 300mg capsule PO SCH (20:37)
[2021-06-04] MEDS: pravastatin 40mg tablet PO SCH (20:38)
[2021-06-04] MEDS ORDERED: warfarin 1mg tablet PO ONE (21:00)
[2021-06-05 00:41] VITALS: BP 105/68
[2021-06-05] MEDS: cefepime 1GM in D5W 50mL 50 ML IV SCH ×3 (01:16→15:41)
[2021-06-05 06:00] VITALS: BP 59/59
[2021-06-05 06:14] LABS: EOSINOPHILS # (AUTO) 0.1 X10'3 (0-0.9); HEMOGLOBIN 10.2 g/dl (12.0-16.0); RED BLOOD COUNT 3.64 X10'6 (4.20-5.60)
[2021-06-05 06:16] LABS: BASOPHILS % (AUTO) 0.2 % (0-1); EOSINOPHILS % (AUTO) 0.7 % (0-6); HEMATOCRIT 31.1 % (35.0-45.0); LYMPHOCYTES # (AUTO) 1.4 X10'3 (1.1-4.8); LYMPHOCYTES % (AUTO) 7.6 % (21-51); MEAN CORPUSCULAR HGB CONC 32.7 g/dL (33.0-36.5); MEAN CORPUSCULAR VOLUME 85.5 FL (78-98); MEAN PLATELET VOLUME 9.4 FL (7.4-10.4); MONOCYTES # (AUTO) 1.2 X10'3 (0-0.9); MONOCYTES % (AUTO) 6.4 % (2-12); NEUTROPHILS # (AUTO) 15.9 X10'3 (1.8-7.7); NEUTROPHILS % (AUTO) 85.1 % (42-75); PLATELET COUNT 133 X10'3 (140-440); RED CELL DISTRIBUTION WIDTH 25.8 % (11.5-14.5); WHITE BLOOD COUNT 18.7 X10'3 (4.5-11.0)
[2021-06-05 06:28] LABS: ALANINE AMINOTRANSFERASE 822 U/L (12-78); ALBUMIN 2.2 G/DL (3.4-5.0); ALBUMIN/GLOBULIN RATIO 0.6 (1.1-1.5); ALKALINE PHOSPHATASE 204 IU/L (46-116); ANION GAP 13 (8-16); ASPARTATE AMINO TRANSFERASE 271 U/L (10-37); BILIRUBIN,TOTAL 3.8 MG/DL (0.1-1.0); BLOOD UREA NITROGEN 34 MG/DL (7-18); BUN/CREATININE RATIO 26.4 (6.6-38.0); CALCIUM 8.1 MG/DL (8.5-10.1); CHLORIDE 98 MMOL/L (99-107); CREATININE 1.29 MG/DL (0.40-0.90); GLUCOSE 97 MG/DL (70-104); POTASSIUM 4.6 MMOL/L (3.5-5.1); SODIUM 128 MMOL/L (135-145); TOTAL CARBON DIOXIDE 16.8 MMOL/L (24-32); TOTAL PROTEIN 5.7 G/DL (6.4-8.2); eGFR 41 ML/MIN
--- NOTE | 2021-06-05 06:32 | NUR ---
Patient in room [facility] 347. I have received report from Ta mcdaniel and had the opportunity to ask questions and assume patient care.
--- NOTE | 2021-06-05 07:05 | NUR ---
Problems reprioritized. Patient report given, questions answered & plan of care reviewed with Shailesh FERNÁNDEZ.
[2021-06-05 08:00] VITALS: BP_SYST 100; BP_SYST 91; BP_DIAS 56; BP_DIAS 68; BP_DIAS 87
[2021-06-05] MEDS: K and/or MAG REPLACEMENT MC SCH ×2 (08:00→20:00)
[2021-06-05] MEDS: midodrine 5mg tablet PO SCH ×3 (08:10→15:52)
[2021-06-05] MEDS: DAPAGLIFLOZIN 10MG TABLET PO SCH (08:10)
[2021-06-05] MEDS: lactobacillus rhamnosus 10,000 MMU CELLS/CAPSULE PO SCH ×2 (08:10→21:17)
[2021-06-05] MEDS: amiodarone 200mg tablet PO SCH (08:11)
[2021-06-05 09:43] LABS: NUCLEATED RED BLOOD CELLS 1 /100WBC (0-0); PLATELET ESTIMATE DECREASED; TOTAL CELLS COUNTED 100
[2021-06-05 09:44] LABS: ANISOCYTOSIS 3+; BURR CELLS 2+; ELLIPTOCYTES FEW; POLYCHROMASIA 1+; SCHISTOCYTES FEW
[2021-06-05 11:00] VITALS: BP 91/65
--- NOTE | 2021-06-05 19:15 | NUR ---
Patient in room [facility] 347. I have received report from Shailesh FERNÁNDEZ and had the opportunity to ask questions and assume patient care.
[2021-06-05 20:35] VITALS: BP 84/52
[2021-06-05] MEDS ORDERED: warfarin 1mg tablet PO ONE (21:00)
[2021-06-05] MEDS: gabapentin 300mg capsule PO SCH (21:17)
[2021-06-05] MEDS: pravastatin 40mg tablet PO SCH (21:18)
[2021-06-06 00:25] VITALS: BP 89/49
[2021-06-06] MEDS: cefepime 1GM in D5W 50mL 50 ML IV SCH ×3 (01:53→15:59)
[2021-06-06 06:18] LABS: BASOPHILS % (AUTO) 0.2 % (0-1); EOSINOPHILS # (AUTO) 0.2 X10'3 (0-0.9); LYMPHOCYTES # (AUTO) 1.6 X10'3 (1.1-4.8); MONOCYTES # (AUTO) 1.1 X10'3 (0-0.9)
[2021-06-06 06:22] LABS: EOSINOPHILS % (AUTO) 1.3 % (0-6); HEMATOCRIT 30.7 % (35.0-45.0); HEMOGLOBIN 9.9 g/dl (12.0-16.0); LYMPHOCYTES % (AUTO) 9.7 % (21-51); MEAN CORPUSCULAR HEMOGLOBIN 28.4 PG (27.0-31.0); MEAN CORPUSCULAR HGB CONC 32.4 g/dL (33.0-36.5); MEAN CORPUSCULAR VOLUME 87.7 FL (78-98); MEAN PLATELET VOLUME 8.9 FL (7.4-10.4); MONOCYTES % (AUTO) 7.1 % (2-12); NEUTROPHILS % (AUTO) 81.7 % (42-75); PLATELET COUNT 143 X10'3 (140-440); RED CELL DISTRIBUTION WIDTH 26.2 % (11.5-14.5)
[2021-06-06 06:34] LABS: ALANINE AMINOTRANSFERASE 610 U/L (12-78); ALBUMIN/GLOBULIN RATIO 0.6 (1.1-1.5); ALKALINE PHOSPHATASE 186 IU/L (46-116); ANION GAP 9 (8-16); ASPARTATE AMINO TRANSFERASE 153 U/L (10-37); BILIRUBIN,TOTAL 3.5 MG/DL (0.1-1.0); BLOOD UREA NITROGEN 30 MG/DL (7-18); BUN/CREATININE RATIO 29.7 (6.6-38.0); CALCIUM 7.7 MG/DL (8.5-10.1); CHLORIDE 102 MMOL/L (99-107); CREATININE 1.01 MG/DL (0.40-0.90); GLUCOSE 87 MG/DL (70-104); POTASSIUM 4.4 MMOL/L (3.5-5.1); SODIUM 130 MMOL/L (135-145); TOTAL CARBON DIOXIDE 18.7 MMOL/L (24-32); TOTAL PROTEIN 5.4 G/DL (6.4-8.2); eGFR 54 ML/MIN
[2021-06-06] MEDS: midodrine 5mg tablet PO SCH ×3 (07:31→15:59)
[2021-06-06] MEDS: lactobacillus rhamnosus 10,000 MMU CELLS/CAPSULE PO SCH ×2 (07:32→19:55)
[2021-06-06] MEDS: amiodarone 200mg tablet PO SCH (07:33)
[2021-06-06] MEDS: DAPAGLIFLOZIN 10MG TABLET PO SCH (07:33)
[2021-06-06 08:00] VITALS: BP 84/63
[2021-06-06] MEDS: K and/or MAG REPLACEMENT MC SCH ×2 (08:35→20:00)
[2021-06-06 09:40] LABS: ANISOCYTOSIS 3+; NUCLEATED RED BLOOD CELLS 1 /100WBC (0-0); PLATELET ESTIMATE NORMAL; TOTAL CELLS COUNTED 100
[2021-06-06 09:41] LABS: BURR CELLS 1+; ELLIPTOCYTES 2+; POLYCHROMASIA FEW; SCHISTOCYTES FEW
[2021-06-06 11:46] VITALS: BP 84/48
[2021-06-06 12:14] VITALS: BP 88/61
--- NOTE | 2021-06-06 18:48 | NUR ---
Patient in room [facility] 347. I have received report from Jodi FERNÁNDEZ and had the opportunity to ask questions and assume patient care.
[2021-06-06 19:25] VITALS: BP 91/62
[2021-06-06] MEDS: gabapentin 300mg capsule PO SCH (19:54)
[2021-06-06] MEDS: pravastatin 40mg tablet PO SCH (19:55)
[2021-06-06 20:40] VITALS: BP 86/52
[2021-06-06] MEDS ORDERED: warfarin 1mg tablet PO ONE (21:00)
[2021-06-07 00:09] VITALS: BP 93/59
[2021-06-07] MEDS: cefepime 1GM in D5W 50mL 50 ML IV SCH ×2 (00:26→08:04)
--- NOTE | 2021-06-07 03:43 | NUR ---
Student documentation: I have reviewed and agree with all interventions, assessments performed and documented by Elizabeth VANEGAS.
[2021-06-07 06:17] LABS: BASOPHILS % (AUTO) 0.1 % (0-1); EOSINOPHILS # (AUTO) 0.3 X10'3 (0-0.9); EOSINOPHILS % (AUTO) 1.9 % (0-6); HEMATOCRIT 32.5 % (35.0-45.0); HEMOGLOBIN 10.4 g/dl (12.0-16.0); LYMPHOCYTES # (AUTO) 1.4 X10'3 (1.1-4.8); LYMPHOCYTES % (AUTO) 10.2 % (21-51); MEAN CORPUSCULAR HEMOGLOBIN 28.6 PG (27.0-31.0); MEAN CORPUSCULAR HGB CONC 32.1 g/dL (33.0-36.5); MEAN PLATELET VOLUME 9.4 FL (7.4-10.4); MONOCYTES # (AUTO) 1.2 X10'3 (0-0.9); MONOCYTES % (AUTO) 8.3 % (2-12); NEUTROPHILS # (AUTO) 11.3 X10'3 (1.8-7.7); NEUTROPHILS % (AUTO) 79.5 % (42-75); PLATELET COUNT 189 X10'3 (140-440); RED BLOOD COUNT 3.65 X10'6 (4.20-5.60); RED CELL DISTRIBUTION WIDTH 27.3 % (11.5-14.5); WHITE BLOOD COUNT 14.2 X10'3 (4.5-11.0)
[2021-06-07 06:35] LABS: ALANINE AMINOTRANSFERASE 499 U/L (12-78); ALBUMIN 2.1 G/DL (3.4-5.0); ALBUMIN/GLOBULIN RATIO 0.6 (1.1-1.5); ALKALINE PHOSPHATASE 250 IU/L (46-116); ANION GAP 12 (8-16); ASPARTATE AMINO TRANSFERASE 116 U/L (10-37); BILIRUBIN,TOTAL 2.5 MG/DL (0.1-1.0); BLOOD UREA NITROGEN 27 MG/DL (7-18); CALCIUM 7.5 MG/DL (8.5-10.1); CHLORIDE 102 MMOL/L (99-107); CREATININE 0.93 MG/DL (0.40-0.90); GLUCOSE 86 MG/DL (70-104); POTASSIUM 4.8 MMOL/L (3.5-5.1); SODIUM 134 MMOL/L (135-145); TOTAL CARBON DIOXIDE 20.3 MMOL/L (24-32); TOTAL PROTEIN 5.5 G/DL (6.4-8.2); eGFR 60 ML/MIN
--- NOTE | 2021-06-07 06:57 | NUR ---
Problems reprioritized. Patient report given, questions answered & plan of care reviewed with Kenyatta FERNÁNDEZ.
--- NOTE | 2021-06-07 07:04 | NUR ---
Patient in room [facility] 347. I have received report from PRADEEP Chappell and had the opportunity to ask questions and assume patient care.
[2021-06-07] MEDS: lactobacillus rhamnosus 10,000 MMU CELLS/CAPSULE PO SCH (07:59)
[2021-06-07] MEDS: midodrine 5mg tablet PO SCH ×2 (07:59→12:33)
[2021-06-07] MEDS: amiodarone 200mg tablet PO SCH (07:59)
[2021-06-07 08:00] VITALS: BP 97/63
[2021-06-07] MEDS: DAPAGLIFLOZIN 10MG TABLET PO SCH (08:00)
[2021-06-07] MEDS: K and/or MAG REPLACEMENT MC SCH (08:00)
[2021-06-07] MEDS: acetaminophen 325mg tablet PO PRN (08:19)
[2021-06-07 09:19] LABS: ANISOCYTOSIS 3+; BURR CELLS 1+; ELLIPTOCYTES FEW; PLATELET ESTIMATE NORMAL; POLYCHROMASIA 1+
[2021-06-07] MEDS ORDERED: MIDO5TAB4 PO (09:42)
[2021-06-07] MEDS ORDERED: LEVO500T89 PO (09:42)
[2021-06-07 11:15] VITALS: BP_SYST 103; BP_SYST 91; BP_SYST 97; BP_DIAS 33; BP_DIAS 56; BP_DIAS 66
--- NOTE | 2021-06-07 13:53 | NUR ---
Reassessment: Pt continues w/ low PO intake, mostly 25% of meals on Heart Healthy diet not meeting needs. Noted Ensure High Protein has not been verified yet, communicated w/ RN that pt could benefit from ONS at this time. Pt may also benefit from diet liberalization to Regular given poor PO and serum Na 134. LBM 06/03 w/ PRN Reglan available. Will continue to monitor and make recommendations as appropriate. Recs: 1. Liberalize to Regular diet if MD agreeable 2. Ensure High Protein TID; pending MD verification 3. Bowel care per rx 4. Weekly wts Addendum: 06/07/21 at [address] Amended: Links added.
--- NOTE | 2021-06-07 15:00 | NUR ---
Report called and given to E[employer], FUMIGATOR AND STERILIZER.
--- NOTE | 2021-06-07 16:22 | NUR ---
Patient dc'd with all personal belongings with [employer] x2 staff. Patient spouse at bedside at time of dc. Patient was alert and oriented with no complaint.
[2021-06-07] MEDS ORDERED: warfarin 1mg tablet PO ONE (21:00)
== END 2021-06-07 16:30 | DRG 871 ==
LOC: ER 12:37 → ED HOLD 15:44 → EDBEDREQSVC 05-26 12:51 → ICU 2S 05-26 13:46 → SUR 3N 05-31 17:43 → UNDODISIN 06-07 14:25
PROVIDERS: ADMIT Internal Medicine; ATTEND Internal Medicine
PROC: 30233N1 Transfusion of Nonautologous Red Blood Cells into Peripheral Vein, Percutaneous Approach (ICD-10-PCS; principal; 2021-06-02)
DX: A41.9 Sepsis, unspecified organism (principal); N17.0 Acute kidney failure with tubular necrosis; I42.9 Cardiomyopathy, unspecified; N39.0 Urinary tract infection, site not specified; I48.20 Chronic atrial fibrillation, unspecified; I13.0 Hypertensive heart and chronic kidney disease with heart failure and stage 1 through stage 4 chronic kidney disease, or unspecified chronic kidney disease; E87.1 Hypo-osmolality and hyponatremia; I50.42 Chronic combined systolic (congestive) and diastolic (congestive) heart failure; E86.0 Dehydration; G62.9 Polyneuropathy, unspecified; B96.20 Unspecified Escherichia coli [E. coli] as the cause of diseases classified elsewhere; B95.2 Enterococcus as the cause of diseases classified elsewhere; E78.5 Hyperlipidemia, unspecified; N18.9 Chronic kidney disease, unspecified; D64.9 Anemia, unspecified; I95.1 Orthostatic hypotension; T50.2X5A Adverse effect of carbonic-anhydrase inhibitors, benzothiadiazides and other diuretics, initial encounter; Z82.5 Family history of asthma and other chronic lower respiratory diseases; Y92.89 Other specified places as the place of occurrence of the external cause; I25.2 Old myocardial infarction; Z79.01 Long term (current) use of anticoagulants; Z82.0 Family history of epilepsy and other diseases of the nervous system; Z82.49 Family history of ischemic heart disease and other diseases of the circulatory system; Z95.0 Presence of cardiac pacemaker; Z95.2 Presence of prosthetic heart valve; Z79.899 Other long term (current) drug therapy
CPT/HCPCS: 36415; 36430; 71045; 76700; 80048; 80053; 80162; 81001; 81003; 82948; 83605; 83735; 83880; 83930; 83935; 84145; 84300; 84484; 85007; 85008; 85025; 85610; 85730; 86885; 86900; 86901; 86920; 87040; 87077; 87081; 87088; 87186; 93005; 93306; 93971; 97110; 97116; 97161; 97530; 99291; 99292; G0378; J0692; J1940; J2405; J2543; J2765; J7030; J7040; P9016